=== PATIENT | female | born 1965 | race Caucasian/White ===

== ENCOUNTER → 2016-07-25 | Outpatient (CLI) | payer OTHER ==
[~2016-07-25] MED LIST: ALPRAZOLAM PO; DARVOCET-N 1001 TAB PO; FLEXERIL PO; HYDROCODON-ACE1 EAC9 PO; KEFLEX500 M2 PO; KETOPROFEN PO; KLONOPIN1 M1 PO; LOVENOX40 MG/0.4 INJ; NAPROXEN PO; ORUDIS75 M1 PO; VICODIN 5/500 T1 TAB PO; ZOLOFT PO; ZOLOFT100 MG PO
--- NOTE | ~2016-07-25 | CR252 ---
[facility] A Service of [facility] RADIOLOGY TEXT RESULTS PATIENT: HENOK GRACE LOCATION: [facility] : 61 UNIT #: [id number] AGE: [address]: Miguelina Sargent MD SEX: F ORDER DR: [id number] [facility] [address]. [place], [place] [address] [id number] O MR#: [id number] Acc #: [id number] NAME: HENOK GARCE : 1965 SEX: F STUDY DATE/TIME: 07/25/2016 9:38 UNIT: [facility] ROOM: STUDY DESCRIPTION: CR Tibia and Fibula 2 Views Lt Attending Physician: Miguelina Sargent M.D. Referring Physician: Miguelina Sargent M.D. Ordering Physician: Miguelina Sargent M.D. Primary Care Physician: No Primary Care Physician MEDICAL IMAGING REPORT This report is preliminary unless electronic signature is present EXAM 2 views left tibia and fibula DATE OF EXAMINATION 07/25/2016 09:38 HISTORY Left tibia and fibula pain. Previous history of tibia-fibula fracture with surgery, approximately 6 months ago. COMPARISON 2 views left tibia-fibula 04/04/2016. FINDINGS Signs of continued bridging callus formation along the obliquely oriented fractures of the mid to distal left tibia and fibular shafts, in satisfactory alignment for healing. There is incomplete osseous healing, particularly along the inferomedial margin. The fibular fracture appears to have undergone complete osseous healing. Orthopedic intramedullary nail with proximal and distal intramedullary screws in the tibia, stable in position. The knee and ankle joints remain appropriately aligned without significant osteoarthritic change. IMPRESSION 1. 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 2. Appearance of complete osseous union across the fibular shaft fracture. Dictated by... Deedee Hopkins M.D. [facility] A Service [facility] RADIOLOGY TEXT RESULTS PATIENT: HENOK GRACE LOCATION: [facility] : 61 UNIT #: [id number] AGE: [address]: Miguelina Sargent MD SEX: F ORDER DR: THIS IS AN ELECTRONICALLY VERIFIED REPORT Deedee Hopkins M.D. at 07/27/2016 8:31 AM [place] TD: 07/25/2016 16:56 JOB #: [id number] MEDICAL IMAGING REPORT Page 1 of 1 COPY
== END | disposition home or self-care (01) ==
LOC: CRAD 09:21
DX: M79.662 Pain in left lower leg (principal); S82.392K Other fracture of lower end of left tibia, subsequent encounter for closed fracture with nonunion
CPT/HCPCS: 73590

== ENCOUNTER 2016-08-11 04:21 | Emergency (ER) | payer OTHER | END 2016-08-11 06:32 | disposition home or self-care (01) | LOC: CED 04:21 | DX: M79.662 Pain in left lower leg (principal); G89.29 Other chronic pain; F41.9 Anxiety disorder, unspecified; K64.9 Unspecified hemorrhoids; F17.210 Nicotine dependence, cigarettes, uncomplicated; Z88.5 Allergy status to narcotic agent; Z88.8 Allergy status to other drugs, medicaments and biological substances; Z79.899 Other long term (current) drug therapy | CPT/HCPCS: 99283 ==